=== PATIENT | male | born 1965 | race African-American/Black ===

== ENCOUNTER 2016-10-15 18:37 | Emergency (ER) | payer OTHER ==
[~2016-10-15] VITALS: Ht 180.3 cm; Wt 117.9 kg
[~2016-10-15 18:37] MED LIST: FLEXERIL10 MG PO; MOTRIN800 MG PO; PERCOCET 325 MG1 TA2 PO
--- NOTE | 2016-10-15 21:48 | ED THROAT/DENTAL COMPLAINT ---
History of Present Illness General Chief Complaint: Sore Throat, Dental Pain Stated Complaint: KEENE,UPPER JAW PAIN ? TOOTH INFECTION Source: patient, family, old records Exam Limitations: no limitations Vital Signs & Intake/Output Vital Signs & Intake/Output Vital Signs Date Time Temp Pulse Resp B/P Pulse O2 O2 Flow FiO2 Ox Delivery Rate 10/15 2199 98.2 76 16 134/70 98 Room Air Room Air 10/15 2130 100 Room Air 10/15 1920 96.9 74 14 136/90 97 Room Air Allergies Uncoded Allergies: CIGARETTE SMOKE (Severe, RESPIRATORY DISTRESS 03/23/11) Reconcile Medications Amoxicillin/Potassium Clav (Augmentin 875-125 Tablet) 875 MG-125 MG TABLET 1 TAB PO BID dental CYCLOBENZAPRINE HCL (Flexeril) 10 MG TAB 1 TAB PO TID PRN muscle strain Avoid operating motor vehicle or heavy machinery Ibuprofen (Motrin) 800 MG TAB 1 TAB PO TID PRN PAIN MILD TO MODERATE Oxycodone HCl/Acetaminophen (Percocet 5-325 MG Tablet) 5 MG-325 MG TABLET 1 TAB PO BID pain OXYCODONE HCL/ACETAMINOPHEN (Percocet 5-325 MG Tablet) 325 MG/5 MG TAB 1 TAB PO Q4-6 PRN PRN PAIN MODERATE TO SEVERE Triage Note: PT TO ED FOR TOOTH INFECTION, SAW DENTIST TODAY WHO TOLD HIM "GO TO THE ER FOR MY PAIN AND THEN CALL THEM IN THE AM" Triage Nurses Notes Reviewed? yes Onset: Abrupt Duration: week(s): (1), constant, changing over time Timing: recent history Injury Environment: home Severity: moderate, severe Severity Numbers: 8 Modifying Factors: Worsens With: eating. Associated Symptoms: DENIES HPI: 51-year-old male who presents to emergency room complaining of a exacerbation of his left upper dental pain for the past 1 week. He states that he saw a dentist today who referred him to ER for pain medication this most of follow-up with him again tomorrow. He states that he had a filling that fell out and he is been using [id number] medications including ibuprofen without improvement. He denies any facial swelling, no difficulty swallowing no sore throat no rashes to his skin, he denies any gingival swelling. Pain is worse with palpation and eating better no other associated symptoms pain is aching and constant nonradiating (CUTR WALKER,BHUPINDER) Past History Travel History Traveled to [place] past 21 day No Medical History Any Pertinent Medical History? none Neurological: NONE EENT: NONE Cardiovascular: NONE Respiratory: NONE Gastrointestinal: NONE Hepatic: NONE Renal: NONE Musculoskeletal: NONE Psychiatric: NONE Endocrine: NONE Blood Disorders: NONE Cancer(s): NONE Surgical History Surgical History: non-contributory Psychosocial History What is your primary language [place] Tobacco Use: Never used ETOH Use: occasional use Illicit Drug Use: denies illicit drug use Family History Hx Contributory? No (BHUPINDER MEYER) Review of Systems Review of Systems Constitutional: Reports: see HPI. All Other Systems: Reviewed and Negative Comments Review of systems: See HPI, All other systems negative. Constitutional, no chills no fever, no malaise HEENT: No visual changes no sore throat no congestion Cardiovascular: No chest pain , no palpitation Skin,no rashes, no change in skin Respiratory: No dyspnea no cough no sputum GI: No nausea no vomiting, no diarrhea, Muscle skeletal: No joint pain, no back pain, no neck pain, Neurologic: No numbness no headache Psych: No stress Heme/endocrine: No bruising no bleeding Immunology: No lymphadenopathy (BHUPINDER MEYER) Physical Exam Physical Exam General Appearance: well developed/nourished, no apparent distress, alert, awake Mouth/Throat: normal mouth inspection, dental tenderness Comments: Well-developed well-nourished patient in no apparent distress. Head/Face: Atraumatic, no maxillary/frontal sinus tenderness, no facial swelling Eyes: PERRL, EOMI, no conjunctival injection. No nystagmus Ear:External auditory canals clear Nose: atraumatic.Normal inspection Throat: Moist mucous membranes.Pharynx normal. No pharyngeal erythema/exudate seen. No stridor/drooling or assymetry. No swelling or edema. Left upper dental tenderness no gingival abscess no trismus Neck: Supple, no lymphadenopathy, FROM Back: FROM, Nontender Cardiovascular: Regular rate and rhythms no murmurs Respiratory: Chest nontender.There were no bony deformities, no asymmetry. No respiratory distress. Patient speaking in full complete sentences. Breath sounds clear to auscultation bilaterally: NO W/R/R Extremities: full range of motion Neuro: Alert and oriented x3 Skin: Warm & dry;No appreciable rash on exposed skin Psych: Mood affect normal, normal memory normal judgment. Core Measures ACS in differential dx? No Severe Sepsis Present: No Septic Shock Present: No (BHUPINDER MEYER) Progress Differential Diagnosis: epiglottitis, odontogenic abscess, luc-tonsillar abscess, stomatitis/gingivitis, tooth fracture Plan of Care: Advise follow-up with dentist prescription for Percocet, Augmentin provided answered all her questions he speaking in full complete sentences appears in no apparent distress clear for discharge I discussed the medications that they will receive with the patient. I gave them signs and symptoms that could indicate an adverse reaction. I have advised them to limit their activities until they can see how they respond to the medication. (BHUPINDER MEYER) Departure Departure Time of Disposition: 2215 Disposition: HOME OR SELF CARE Condition: Stable Clinical Impression Primary Impression: Toothache Referrals: PATIENT HAS NO PRIMARY CARE DR (PCP/Family) Additional Instructions: FOLLOW UP WITH YOUR DENTIST SCHEDULED. Augmentin as directed, Percocet for breakthrough pain use caution as this will make you drowsy no driving or drinking alcohol while taking.these were sent to your pharmacy Departure Forms: Customer Survey General Discharge Information Prescriptions: Current Visit Scripts Amoxicillin/Potassium Clav (Augmentin 875-125 Tablet) 1 TAB PO BID #14 TAB Oxycodone HCl/Acetaminophen (Percocet 5-325 MG Tablet) 1 TAB PO BID #10 TAB (BHUPINDER MEYER) PA/NET WEB APPLICATION DEVELOPER Co-Sign Statement Statement: ED Attending supervision documentation- [] I saw and evaluated the patient. I have also reviewed all the pertinent lab results and diagnostic results. I agree with the findings and the plan of care as documented in the PA's/NET WEB APPLICATION DEVELOPER's documentation. [X] I have reviewed the ED Record and agree with the PA's/NET WEB APPLICATION DEVELOPER's documentation. [] Additions or exceptions (if any) to the PAs/NET WEB APPLICATION DEVELOPER's note and plan are summarized below: [] (MIKKI STUART,MAHESH)
[2016-10-15 22:00] VITALS: BP 134/70
[2016-10-15] MEDS ORDERED: PERCOCET 5-3251 EACH PO (22:19)
[2016-10-15] MEDS ORDERED: AUGMENTIN 875-1 EACH PO (22:19)
== END 2016-10-15 22:25 ==
LOC: ERH 18:37
DX: K08.89 Other specified disorders of teeth and supporting structures (principal)